=== PATIENT | male | born 1960 | race Caucasian/White ===

== ENCOUNTER 2017-12-16 05:32 | Emergency (ER) | payer BC, OTHER ==
--- NOTE | 2017-12-16 05:36 | PDOC ---
History of Present Illness - General Chief Complaint: Nasal Bleeding Stated Complaint: BENT OVER HAD NOSE BLEED X A FEW MINUTES Time Seen by Provider: 12/16/17 05:34 - History of Present Illness Initial Comments: This 57-year-old man with no significant past medical history presents with brief episode of epistaxis earlier this morning. Patient states that he went to see his son, who was crying, a few hours prior to presentation. When he bent over his son, he had bleeding from his right nostril that lasted a few minutes. He also coughed up a small clot. Patient placed direct pressure ( pinched) his nose for a few minutes and bleeding stopped. There has been no recurrence since then. No other episodes of epistaxis noted. He denies any other easy bleeding/bruising. Past History - Past Medical History Allergies/Adverse Reactions: Allergies Allergy/AdvReac Type Severity Reaction Status Date / Time No Known Allergies Allergy Verified 12/16/17 05:34 Home Medications: Ambulatory Orders NK [No Known Home Medication] 11/04/15 - Suicide/Smoking/Psychosocial Hx Smoking History: Never smoked Hx Alcohol Use: No Drug/Substance Use Hx: No Substance Use Type: None Review of Systems - Review of Systems Able to Perform ROS?: Yes Comments:: 12 point review of systems is negative except for what is noted in the history of present illness *Physical Exam - Physical Exam Comments: GENERAL: Adult male, alert and oriented X 3 in no acute distress; vital signs as noted HEAD: Normal with no signs of trauma. EYES: PERRLA, EOMI, sclera anicteric, conjunctiva clear. ENT: Ears normal, nares patent no evidence of bleeding or clot , oropharynx clear without exudates. Dry mucous membranes. NECK: Normal range of motion, supple without lymphadenopathy, JVD, or masses. LUNGS: Breath sounds equal, clear to auscultation bilaterally. No wheezes, and no crackles. HEART:Regular rate and rhythm, normal S1 and S2 without murmur, rub or gallop. ABDOMEN:.normal bowel sounds No guarding,tenderness or rebound.No masses No distention. EXTREMITIES: Normal range of motion, no edema. No clubbing or cyanosis. No erythema, or tenderness. NEUROLOGICAL: Cranial nerves II through XII grossly intact. Normal speech. No focal neurological deficits. MUSCULOSKELETAL: Back non-tender to palpation, no CVA tenderness SKIN: Warm, Dry, normal turgor, no rashes or lesions noted. Medical Decision Making - Medical Decision Making This 57-year-old man presents with a history of self-limited epistaxis at home just prior to presentation. Bleeding started when patient bent over his son who is crying and resolved with direct pressure to his nostrils. No recurrence since then. No other symptoms noted. On exam, patient's BP is elevated at 177/ 94. He states that when he saw his PMD last January, was borderline high and plan was to modify diet. No history of sustained hypertension. It was explained to the patient that there may be an association of nosebleeds with elevated blood pressure; the pressure that he has at this moment may not be totally reflective of his baseline since he is anxious about his nosebleed. He should plan to see his PMD within the next week; also, ear nose and throat physician referral information given to him in case he has multiple episodes of mild epistaxis. He has been instructed to place direct pinching pressure against his nostrils for at least 10 minutes if he has recurrent epistaxis. If bleeding is persistent, he should return to the ER *DC/Admit/Observation/Transfer Diagnosis at time of Disposition: History of epistaxis - Discharge Dispostion Disposition: HOME Condition at time of disposition: Stable - Referrals Referrals: Mo Garcia MD [Staff Physician] - 1 week Lorin Bruno [Non Staff, Medical] - - Patient Instructions Printed Discharge Instructions: DI for Nosebleed Additional Instructions: avoid blowing your nose don't keep your head down for prolonged time If nosebleed starts again, pinch nostrils together for 10 minutes Return to ER if bleeding is persistent Follow-up with within the next 3-4 days (call office today to arrange appointment) Follow-up with ENT (Dr. Garcia group) if you have persistent mild bleeding from nose - Post Discharge Activity
[2017-12-16 05:40] VITALS: BP 177/94; PULSE 89; TEMP 97.7; BMI 27.8
== END 2017-12-16 05:58 | disposition home or self-care (01) ==
LOC: FER 05:32
DX: R04.0 Epistaxis (principal)
CPT/HCPCS: 99281-25